=== PATIENT | male | born 1960 | race Asian ===

== ENCOUNTER 2018-03-18 10:45 | Emergency (ER) | payer BC ==
[~2018-03-18] VITALS: Ht 167.6 cm; Wt 72.6 kg
[2018-03-18 11:31] LABS: APPEARANCE SL.HAZY ((CLEAR)); BILIRUBIN NEGATIVE; BLOOD NEGATIVE; COLOR YELLOW ((YELLOW)); GLUCOSE (STRIP) 50; KETONES NEGATIVE; LEUKOCYTES NEGATIVE; NITRITE NEGATIVE; PROTEIN (STRIP) 30; UROBILINOGEN 0.2 MG/DL (0.2-1.0)
[2018-03-18 11:37] LABS: HEMATOCRIT 46.4 % (38.0-50.0); HEMOGLOBIN 16.6 G/DL (12.5-16.6); MCH 30.5 PG (29.0-34.0); MCHC 35.8 G/DL (30.0-36.0); MCV 85.3 FL (86-99); PLATELET COUNT 239 K/uL (156-360); RBC DIS.WIDTH-CV 11.9 % (11.8-14.6); RBC DIS.WIDTH-SD 36.8 % (39-53); RED BLOOD COUNT 5.44 M/uL (4.00-5.50); WHITE BLOOD COUNT 9.2 K/uL (4.1-10.2)
[2018-03-18 11:44] LABS: BACTERIA NONE SEEN /HPF; EPITHELIAL CELLS RARE /HPF; MUCUS 3+ /LPF; RED BLOOD CELLS 0-5 /HPF (0-5); UCUL ADDED? NO; WHITE BLOOD CELLS 0-5 /HPF (0-5)
[2018-03-18 12:00] LABS: ALBUMIN 4.4 G/DL (3.2-4.8); ALKALINE PHOSPHATASE 78 IU/L (3-129); ALT (GPT) 21 IU/L (3-49); AST (GOT) 18 IU/L (2-34); CHLORIDE 102 MEQ/L (99-109); CREATININE 0.8 MG/DL (0.6-1.3); GFR ESTIMATE (CALCULATED) > 59 mL/min/ (58.99-99999); GLUCOSE 202 mg/dL (70-99); LIPASE 9 U/L (1.0-51.0); POTASSIUM 3.8 MEQ/L (3.7-5.4); SODIUM 136 MEQ/L (136-147); TOTAL BILIRUBIN 0.8 MG/DL (0.0-1.0); TOTAL PROTEIN 7.5 G/DL (6.4-8.3); UREA NITROGEN (BUN) 10 mg/dL (9-23)
[2018-03-18] MEDS ORDERED: ULTRAM50 MG PO (13:32)
[2018-03-18 14:09] VITALS: BP 131/86
== END 2018-03-18 14:10 | disposition home or self-care (01) ==
LOC: EDBD 10:45 → EME 10:45
DX: K40.90 Unilateral inguinal hernia, without obstruction or gangrene, not specified as recurrent (principal)
CPT/HCPCS: 74176; 80053; 81003; 83690; 85027; 99281; 99283